=== PATIENT | female | born 1980 | race Caucasian/White ===

== ENCOUNTER 2024-10-05 18:32 | Emergency (ER) | payer MEDICAID ==
[~2024-10-05] VITALS: Ht 162.6 cm; Wt 87.7 kg
[2024-10-05 18:52] VITALS: BP 172/109; PULSE 88; TEMP 97.2; O2SAT 99
--- NOTE | 2024-10-05 20:32 | Physician Documentation ---
HPI ~ General Chief Complaint: Tooth Problem Stated Complaint: TOOTH ACHE Time Seen by MD: 19:50 History of Present Illness HPI Comment 44-year-old female reports a chief complaint of dental pain. Patient states she was seen at [facility] when week ago given antibiotics and pain medication but states she is still endorsing pain. Patient has a follow up appointment with her dentist in the next five days but states she is requesting refill for antibiotics and pain medication. Denies fevers or chills. No other complaints at this time Medication Reconciliation Allergies: Coded Allergies: No Known Allergies (Unverified , 10/05/24) Physical Exam Vital Signs: Temperature: 97.2, Source: Temporal, Heart Rate: 88, Respiratory Rate: 20, BP: 172/109, Pulse Oximetry: 99, Weight: 87.700 Oxygen Flow Rate: 0 Physical Exam General: Well developed, well nourished, no distress. HEENT: Positive for multiple dental caries at tooth 14., 15, 16 as well as tooth 17, 18, 19. Positive for mild pain to the external mandible and maxilla but negative for erythema. Neck: Full range of motion, supple. Respiratory: Lungs clear, no respiratory distress. Chest: No accessory muscle use, nontender. Cardiovascular: Regular rate and rhythm. Gastrointestinal: Soft, nontender, nondistended. Bowel sounds present. Extremities: Normal range of motion, nontender, normal capillary refill, no deformity. Back: No midline tenderness, no CVA tenderness. Neurologic: Oriented x4. Distal gross motor and sensory intact all four extremities. Moves all 4 extremities spontaneously. Psychiatric: Normal mood and affect. Skin: Normal color, warm and dry. No edema, no ecchymosis Progress Results/Orders Results/Orders Vital Signs 10/05/24 18:52 Temp 97.2 Pulse 88 Resp 20 B/P (MAP) 172/109 Pulse Ox 99 O2 Flow Rate 0 Medical Decision Making Additional info obtained from: old records Findings After detailed discussion jet medical decision-making, diagnostic imaging results were discussed with patient. At this time patient has multiple dental caries patient will be given Augmentin and given medication for pain. Patient advised to follow up with primary care and keep her dental appointment. ER precautions were given. Patient is stable upon discharge. All patient questions answered to satisfaction Differential Dx:Considerations: Include: ANUG, Facial Cellulitis, Tooth avulsion, Tooth eruption, Tooth Fracture, Trigeminal neuralgia, Tooth subluxation Departure Disposition: 01 HOME / SELF CARE / HOMELESS Impression: Primary Impression: Toothache Additional Impression: Dental caries Condition: Stable Discharge Instructions: Dental Caries, Adult, Dental Pain Referrals: NO PRIMARY CARE PROVIDER (PCP) Prescriptions Amox Tr/Potassium Clavulanate (Augmentin 875-125 Tablet) 1 Each Tablet 1 TAB PO Q12H for 10 Days, #20 TAB Prov: BOB COLEMAN 10/05/24 Hydrocodone Bit/Acetaminophen (Hydrocodone-Apap 10-325 Tablet) 10mg/325mg Tablet 1 TAB PO TID PRN PRN for pain for 5 Days, #15 TAB Prov: BOB COLEMAN 10/05/24 Education Educated: Patient Educated regarding: diagnosis, treatment Signature Scribe Signature: none used Attestation: Scribed for Bob Coleman by Bob STEWART . 10/05/24 20:32 BOB COLEMAN October 05, 2024 20:32
[2024-10-05] MEDS ORDERED: HYDR-3973 PO (20:56)
[2024-10-05] MEDS ORDERED: AMOX-117 PO (20:56)
[2024-10-05 21:34] VITALS: RESP 18
[2024-10-05] MEDS: ketorolac trometh 30MG/ML vial 30 MG/ML VIAL IM ONE (21:34)
== END 2024-10-05 21:45 | disposition home or self-care (01) ==
LOC: ER 18:33
DX: K02.9 Dental caries, unspecified (principal); K08.89 Other specified disorders of teeth and supporting structures
CPT/HCPCS: 96372; 99283; J1885